=== PATIENT | male | born 1965 | race Two or more races ===

== ENCOUNTER 2024-02-25 12:12 | Emergency (ER) | payer OTHER ==
[2024-02-25 12:19] VITALS: BP 146/103; PULSE 86; RESP 18; TEMP 97.6; BMI 32.0
[2024-02-25] MEDS ORDERED: LIDOCAINE 2.5%/PRILOCAINE 2.5% (5 Gram/TUBE) TP ONE (12:39)
[2024-02-25] MEDS: LIDOCAINE 2.5%/PRILOCAINE 2.5% (5 Gram/TUBE) TP ONE (12:40)
[2024-02-25 14:22] LABS: HIV INTERPRETATION NEGATIVE (NEGATIVE)
== END 2024-02-25 13:11 | disposition home or self-care (01) ==
LOC: JERFT 12:12
DX: L91.8 Other hypertrophic disorders of the skin (principal)
CPT/HCPCS: 36415; 86803; 87389; 99283-25